=== PATIENT | male | born 1935 | race Caucasian/White ===

== ENCOUNTER → 2018-03-21 | Outpatient (CLI) | payer MEDICARE | LOC: M RAD 06:53 | DX: I71.4 Abdominal aortic aneurysm, without rupture (principal) | CPT/HCPCS: 76775 ==

== ENCOUNTER → 2018-11-27 | Outpatient (CLI) | payer MEDICARE ==
--- NOTE | 2018-11-27 12:25 | REP ---
ULTRASOUND ABDOMINAL AORTA: Real-time sonographic evaluation of the abdominal aorta performed. COMPARISON: 03/21/2018. On today's scan, the maximum AP diameter of the abdominal aorta is 3.2 cm, slightly aneurysmal. Prior measurement of 4.5 cm appears to have been over estimated. Proximally, the abdominal aorta measures 2.3 cm, at the level of the renal artery is 2.9 cm. Common iliac arteries are mildly ectatic, measuring 1.5 cm and left 2.0 cm in AP dimension. The study is somewhat limited due to patient body habitus and bowel gas. 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 Previous measurement on the 03/21/2018 exam appears to have over estimated. Electronically Signed by Luis Schneider MD 11/29/2018 11:49 A
== END ==
LOC: M RAD 07:44
PROVIDERS: ATTEND Surgery Vascular Surgery
DX: I71.4 Abdominal aortic aneurysm, without rupture (principal)